=== PATIENT | female | born 1995 | race Caucasian/White ===

== ENCOUNTER 2018-10-13 20:52 | Emergency (ER) | payer MEDICAID, OTHER ==
[2018-10-13] MEDS ORDERED: ACETAMINOPHEN 500 MG TAB PO ONE (21:19)
[2018-10-13] MEDS ORDERED: NS 1,000 ML IV ONE ×2 (21:19→23:17)
[2018-10-13 21:29] LABS: PLATELET COUNT 194 10^3/uL (150-400)
[2018-10-13 21:58] LABS: INR 1.19 (0.83-1.16); PROTIME(PATIENT) 14.6 SEC (12.0-15.0)
--- NOTE | 2018-10-13 22:09 | EDPHY ---
General - History Smoking Status: Never smoked Time Seen by Provider: 10/13/18 20:59 Narrative: CLINICAL IMPRESSION: Intermittent fevers, myalgias, cough ASSESSMENT/PLAN: 22-year-old female with a significant past medical history of pulmonary embolism at age 15 with negative hematologic workup and not currently anticoagulated, presents to the emergency department with vague complaints of 3 weeks of intermittent fevers, myalgias, and a dry cough. Patient reports symptoms have been worse over last 3 days. Vital signs reveal fever of 39 C, tachycardia but no hypoxia, tachypnea or respiratory distress. On exam patient has no clinical signs to suggest exudative tonsillitis, peritonsillar abscess, retropharyngeal abscess, uvulitis, stomatitis, Rober's angina or neck abscess. Lungs are clear with no audible wheezing and chest x-ray has no obvious acute cardiopulmonary abnormality. Labs included CBC, metabolic panel, mono, influenza, rapid strep, urine and D-dimer. All of these were unremarkable with no evidence of leukocytosis, renal insufficiency, anemia, mononucleosis, influenza, strep tonsillitis, severe dehydration. Patient did have a marked elevated D-dimer 3.9. CTA read by Radiology with no evidence of acute pulmonary embolism or pneumonia. Patient and mother were very reassured by this. Case discussed with Dr. Hart. We feel comfortable with discharge and follow up as an outpatient with primary care. No rash, insect or tick bite, or recent travel. Encouraged rest, antipyretics as needed, adequate hydration and meals, warning signs return to ED sooner discussed discharge. DIFFERENTIAL DX: Differential diagnosis includes but not limited to influenza, viral respiratory illness, pneumonia, tonsillitis, mononucleosis, UTI, dehydration, electrolyte imbalance, sepsis, PE ED PROCEDURES: See lab and/or imaging results below ED COURSE: 10:00 p.m.: Labs reviewed by myself. No leukocytosis, renal insufficiency, electrolyte imbalance. [place] negative. Influenza and respiratory panel pending. Lactate normal. Significant elevated D-dimer 3.6. EKG obtained, normal sinus rhythm, no evidence of right heart strain, reviewed with Dr. Hart. Labs discussed with family. I explained my concern about significant elevated D-dimer in the setting of normal labs and chest x-ray. I recommended repeat CT a.m. Patient and mother are in agreement. 11:40 p.m.: Case discussed with Dr. Odell. CT scan negative for acute pulmonary embolism. Trace pleural effusions bilaterally. No pneumonia. Results reviewed with family who are very reassured. Patient reports feeling better. CHIEF COMPLAINT: Fever, weakness, fatigue HPI: 22-year-old female presents to the emergency department with 3 weeks of intermittent fever, weakness, fatigue, and cough all of which have become worse in the last 3 days. She reports no sore throat, congestion, or productive cough. She has allergies and takes Zyrtec for runny nose. She occasionally notices some abdominal cramping and reports diffuse "bone pain". She has not traveled anywhere outside the [place] 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 She has a significant past medical history of bilateral pulmonary emboli at age 15 with no identified cause. She was admitted at [facility] for 5-6 days, on Lovenox for 6 months at discharge, did not receive any interventional procedure. She does complain of some substernal chest discomfort that feels different than when she had her PEs and is not pleuritic in nature. She does report some shortness of breath. There is no reported family history of coagulopathy. She reports no new medications or [id number] products. No rash. She states her fevers are as high as 102 on ibuprofen. PAST MEDICAL HISTORY: Past history of bilateral pulmonary emboli, right ACL repair See nurse/triage notes for additional history if applicable Pertinent Past Surgical History: Right ACL repair Family History: Brother with astrocytoma brain cancer Social History: Nonsmoker no underlying asthma REVIEW OF SYSTEMS: All other systems negative Constitutional: Positive for fever, chills, denies appetite change. Eyes: No discharge, vision change ENT: No sore throat, congestion, ear pain, positive for runny nose Cardiovascular: No chest pain, no palpitations. Respiratory: Positive for cough and shortness of breath. Gastrointestinal: No abdominal pain, no vomiting, denies nausea diarrhea. Genitourinary: No hematuria, dysuria, flank pain, pelvic pain Musculoskeletal: No back pain, joint swelling, joint pain, myalgias. Skin: No rashes, color change. Neurological: No headache, dizziness, positive for fatigue and weakness. PHYSICAL EXAM: General Appearance: Alert, oriented, appropriate, cooperative, febrile, tachycardic, saturating 96% on room air HEENT: TMs are clear bilaterally no perforation or FB, no injection, no evidence of serous or mucopurulent otitis. Oropharynx clear is no erythema or exudates, positive for tonsillar hypertrophy without asymmetry Dentition without abnormality. Eyes: PERRLA, no acute vision change, nystagmus, swelling, discharge, pain or photosensitivity. Conjunctiva pink, no pallor or injection Neck: Supple, nontender, no lymphadenopathy, no midline pain, FROM, no meningismus. Respiratory: There are no retractions, lungs are clear to auscultation. Reproducible pain to palpation on the inferior aspect of the sternum Cardiac: Tachycardic, regular rhythm, no murmurs or gallops.] Gastrointestinal: Abdomen is soft, nontender, no splenomegaly bowel sounds normal, no masses/hernia, no rigidity, guarding or focal peritoneal findings. Neurological: [ Alert and oriented x 3 Skin: Warm, dry, no rashes, no nodules on palpation. Musculoskeletal: Extremities are symmetrical, full range of motion, no tenderness, deformity, swelling, or erythema. No asymmetric calf or leg swelling Psychiatric: Patient is oriented X 3, there is no agitation. MEDICAL DECISION MAKING: Patient was seen independently. Secondary supervising physician at time of evaluation was Dr. Hart . Diagnosis: Viral syndrome, myalgias, intermittent fever. New, requires workup Summary: See Assessment and Plan for summary of ED visit Clinical lab tests: ordered / reviewed. Independent visualization of images, tracing, or specimens: Yes. Decision to obtain medical records or history from someone other than the patient: Patient's mother Review / Summarize previous medical records: None available Discussed patient with another provider: Dr. Hart, radiology Patient Progress: Stable for discharge. (Frank Obrien) Medical Decision Making: PHYSICIAN DOCUMENTATION: The patient was evaluated and managed by the Physician Bank Cashier. My co- signature indicates that I have reviewed this chart and I agree with the findings and plan of care as documented. I am the secondary supervising physician. (Isreal Hart) - Diagnostics EKG Interpretation: EKG: Complete interpretation has been separately recorded in the [facility] archive. Summary impression: Sinus rhythm, rate 82 (Isreal Hart) Imaging Results: Imaging Impressions Chest X-Ray 10/13/18 21:40 Impression: Clear lungs. No pneumonia or effusion. Chest/Thorax CTA 10/13/18 22:22 Impression: 1. No evidence of thrombopulmonary embolic disease. 2. Trace bilateral pleural effusions. 3. No pneumonia. Findings discussed with Emergency Department physician office clerk assistant, Frank Obrien at 10/13/2018 23:45. - Objective Vital Signs: Initial Vital Signs Temperature (C) 39.1 C H 10/13/18 20:55 Heart Rate 101 H 10/13/18 20:55 Respiratory Rate 20 10/13/18 20:55 Blood Pressure 109/65 10/13/18 20:55 O2 Sat (%) 96 10/13/18 20:55 O2 Delivery Mode Room Air Allergies/Adverse Reactions: No Known Allergies Allergy (Unverified 10/13/18 20:58) Home Medications: Medication Instructions Recorded NK [No Known Home Meds] 05/02/13 Laboratory Results: Laboratory Results 10/13/18 21:09 10/13/18 21:09 10/13/18 10/13/18 10/13/18 23:37 22:11 21:09 WBC RBC Hgb Hct MCV MCH MCHC RDW Plt Count MPV Neut % (Auto) Lymph % (Auto) [place] % (Auto) Eos % (Auto) Baso % (Auto) Nucleat RBC Rel Count Absolute Neuts (auto) Absolute Lymphs (auto) Absolute Monos (auto) Absolute Eos (auto) Absolute Basos (auto) Absolute Nucleated RBC Immature Gran % Immature Gran # PT INR APTT D-Dimer VBG Lactic Acid Sodium Potassium Chloride Carbon Dioxide Anion Gap BUN Creatinine Estimated GFR Glucose Calcium Total Bilirubin 0.6 mg/dL mg/dL (0.1-1.4) Lipase 62 IU/L IU/L (23-300) Urine Color PALE YELLOW Urine Appearance CLEAR Urine pH 7.0 (5.0-7.5) Ur Specific Kathryn 1.011 (1.002-1.030) Urine Protein NEGATIVE (NEGATIVE) Urine Ketones NEGATIVE (NEGATIVE) Urine Blood NEGATIVE (NEGATIVE) Urine Nitrate NEGATIVE (NEGATIVE) Urine Bilirubin NEGATIVE (NEGATIVE) Urine Urobilinogen NEGATIVE EU EU (0.2-1.0) Ur Leukocyte Esterase NEGATIVE (NEGATIVE) Urine Glucose NEGATIVE (NEGATIVE) Nasal Influenza A PCR NEGATIVE FOR FLU A (NEGATIVE) Nasal Influenza B PCR NEGATIVE FOR FLU B (NEGATIVE) Monoscreen 10/13/18 10/13/18 10/13/18 21:09 21:09 21:09 WBC RBC Hgb Hct MCV MCH MCHC RDW Plt Count MPV Neut % (Auto) Lymph % (Auto) [place] % (Auto) Eos % (Auto) Baso % (Auto) Nucleat RBC Rel Count Absolute Neuts (auto) Absolute Lymphs (auto) Absolute Monos (auto) Absolute Eos (auto) Absolute Basos (auto) Absolute Nucleated RBC Immature Gran % Immature Gran # PT 14.6 SEC SEC (12.0-15.0) INR 1.19 H (0.83-1.16) APTT 34.3 SEC SEC (23.0-38.0) D-Dimer 3.62 ug/mLFEU H ug/mLFEU (0.00-0.50) VBG Lactic Acid Sodium 136 mEq/L mEq/L (135-145) Potassium 4.0 mEq/L mEq/L (3.5-5.2) Chloride 102 mEq/L mEq/L (97-110) Carbon Dioxide 22 mEq/l mEq/l (22-31) Anion Gap 12 mEq/L mEq/L (6-14) BUN 10 mg/dL mg/dL (7-23) Creatinine 0.6 mg/dL mg/dL (0.6-1.0) Estimated GFR > 60 Glucose 94 mg/dL mg/dL (70-100) Calcium 9.2 mg/dL mg/dL (8.5-10.4) Total Bilirubin Lipase Urine Color Urine Appearance Urine pH Ur Specific Kathryn Urine Protein Urine Ketones Urine Blood Urine Nitrate Urine Bilirubin Urine Urobilinogen Ur Leukocyte Esterase Urine Glucose Nasal Influenza A PCR Nasal Influenza B PCR Monoscreen NEGATIVE (NEGATIVE) 10/13/18 10/13/18 21:09 21:09 WBC 6.87 10^3/uL 10^3/uL (3.80-9.50) RBC 4.87 10^6/uL 10^6/uL (4.18-5.33) Hgb 14.6 g/dL g/dL (12.6-16.3) Hct 40.8 % % (38.0-47.0) MCV 83.8 fL fL (81.5-99.8) MCH 30.0 pg pg (27.9-34.1) MCHC 35.8 g/dL g/dL (32.4-36.7) RDW 11.4 % L % (11.5-15.2) Plt Count 194 10^3/uL 10^3/uL (150-400) MPV 9.1 fL fL (8.7-11.7) Neut % (Auto) 82.3 % H % (39.3-74.2) Lymph % (Auto) 11.5 % L % (15.0-45.0) [place] % (Auto) 5.8 % % (4.5-13.0) Eos % (Auto) 0.0 % L % (0.6-7.6) Baso % (Auto) 0.3 % % (0.3-1.7) Nucleat RBC Rel Count 0.0 % % (0.0-0.2) Absolute Neuts (auto) 5.65 10^3/uL 10^3/uL (1.70-6.50) Absolute Lymphs (auto) 0.79 10^3/uL L 10^3/uL (1.00-3.00) Absolute Monos (auto) 0.40 10^3/uL 10^3/uL (0.30-0.80) Absolute Eos (auto) 0.00 10^3/uL L 10^3/uL (0.03-0.40) Absolute Basos (auto) 0.02 10^3/uL 10^3/uL (0.02-0.10) Absolute Nucleated RBC 0.00 10^3/uL 10^3/uL (0-0.01) Immature Gran % 0.1 % % (0.0-1.1) Immature Gran # 0.01 10^3/uL 10^3/uL (0.00-0.10) PT INR APTT D-Dimer VBG Lactic Acid 0.9 mmol/L mmol/L (0.7-2.1) Sodium Potassium Chloride Carbon Dioxide Anion Gap BUN Creatinine Estimated GFR Glucose Calcium Total Bilirubin Lipase Urine Color Urine Appearance Urine pH Ur Specific Kathryn Urine Protein Urine Ketones Urine Blood Urine Nitrate Urine Bilirubin Urine Urobilinogen Ur Leukocyte Esterase Urine Glucose Nasal Influenza A PCR Nasal Influenza B PCR Monoscreen Medications Given: Discontinued Medications Acetaminophen (Tylenol) 1,000 mg PO EDNOW ONE Stop: 10/13/18 21:20 Last Admin: 10/13/18 21:41 Dose: 1,000 mg Sodium Chloride (Ns) 1,000 mls @ 0 mls/hr IV EDNOW ONE; Wide Open PRN Reason: Protocol Stop: 10/13/18 21:20 Last Admin: 10/13/18 21:20 Dose: 1,000 mls Sodium Chloride (Ns) 1,000 mls @ 0 mls/hr IV EDNOW ONE; Wide Open PRN Reason: Protocol Stop: 10/13/18 23:18 Last Admin: 10/13/18 23:38 Dose: 1,000 mls Departure - Departure Disposition: Home, Routine, Self-Care Clinical Impression: Viral syndrome, Myalgia Condition: Fair Instructions: Viral Syndrome (ED) Additional Instructions: DISCHARGE INSTRUCTIONS FROM YOUR DOCTOR Thank you for visiting our emergency department today. You were treated by a physician office clerk assistant today and your case was reviewed with our ED Attending physician. Please keep in mind that discharge from the emergency department does not mean that there is nothing wrong - it simply means that we have not identified an emergency condition that requires further evaluation or treatment in the hospital. You should always plan to follow up with primary care for re- evaluation of your condition in the next 2-3 days. If you have been referred to a specialist, please call as soon as possible (today or tomorrow) to schedule your follow up appointment at the appropriate time. DIAGNOSTIC WORKUP IN THE EMERGENCY DEPARTMENT TONIGHT INCLUDED EKG, CHEST CT SCAN, D-DIMER, METABOLIC PANEL, CBC, MONO, INFLUENZA. LAB WORK WAS REASSURING ASIDE FROM AN ELEVATED D-DIMER AND THEREFORE CT ANGIOGRAM WAS PERFORMED SHOWING NO EVIDENCE OF PULMONARY EMBOLISM OR PNEUMONIA. MONO AND INFLUENZA TESTS ARE BOTH NEGATIVE. YOU RECEIVED 2 L OF IV FLUID AND TYLENOL. PLEASE CONTROL FEVERS WITH IBUPROFEN OR TYLENOL AND YOU CAN TAKE BOTH FOR HIGH FEVERS. PLEASE CONTACT YOUR PRIMARY CARE DOCTOR TOMORROW TO MAKE A FOLLOW-UP APPOINTMENT. PLEASE RETURN TO THE EMERGENCY DEPARTMENT IMMEDIATELY FOR PERSISTING OR WORSENING FEVERS, SHORTNESS OF BREATH OR CHEST PAIN, RASH, NECK PAIN OR STIFFNESS, ALTERED MENTAL STATUS, OR ANY OTHER CONCERNS. People present with illnesses and injuries in different ways, and it is always possible that we have missed something. You may always return for re-evaluation if symptoms worsen or if they are not improving or if you develop new/different symptoms. Again, thank you for choosing our emergency department. We hope that you feel better. Referrals: Roni Crawford MD [Primary Care Provider] - 1-2 days without fail
--- NOTE | 2018-10-13 22:24 | CPEKG ---
Test Reason : OPEN Blood Pressure : / mmHG Vent. Rate : 082 BPM Atrial Rate : 082 BPM P-R Int : 152 ms QRS Dur : 089 ms QT Int : 383 ms P-R-T Axes : 050 084 027 degrees QTc Int : 448 ms Sinus rhythm Confirmed by Isreal Hart ([id number]) on 10/13/2018 10:23:18 PM Referred By: Isreal Hart Confirmed By:Isreal Hart
[2018-10-13] MEDS ORDERED: IOPAMIDOL (ISOVUE 370) 100 ML BTL IV ONE ×2 (22:50→23:12)
[2018-10-14 00:21] VITALS: BP 95/53
== END 2018-10-14 00:20 | disposition home or self-care (01) ==
DX: B34.9 Viral infection, unspecified (principal); M79.10 Myalgia, unspecified site; E86.9 Volume depletion, unspecified; Z86.711 Personal history of pulmonary embolism
CPT/HCPCS: Q9967